=== PATIENT | female | born 1990 | race Caucasian/White ===

== ENCOUNTER 2020-05-09 17:33 | Emergency (ER) | payer OTHER ==
[~2020-05-09] VITALS: Ht 154.9 cm; Wt 68.0 kg
[2020-05-09 17:40] VITALS: BP_SYST 123
[2020-05-09] MEDS ORDERED: HYDROcodone/ACETAMIN 5-325 MG TAB (NORCO/ VICODIN) ONE (19:38)
[2020-05-09] MEDS ORDERED: BACITRACIN 1 GM OINT TP ONE (19:38)
[2020-05-09] MEDS ORDERED: IBUP-1969 PO (19:41)
[2020-05-09] MEDS ORDERED: AMOX-426 PO (19:41)
[2020-05-09] MEDS ORDERED: HYDROcodone/ACETAMIN 5-325 MG TAB (NORCO/ VICODIN) PO ONE (19:45)
[2020-05-09 19:55] VITALS: BP_SYST 123
== END 2020-05-09 19:50 | disposition home or self-care (01) ==
LOC: SED 17:33
DX: S61.452A Open bite of left hand, initial encounter (principal); W54.0XXA Bitten by dog, initial encounter; Y93.89 Activity, other specified; Y92.89 Other specified places as the place of occurrence of the external cause; Y99.8 Other external cause status
CPT/HCPCS: 99283